=== PATIENT | male | born 1975 | race Caucasian/White ===

== ENCOUNTER 2021-08-05 12:36 | Emergency (ER) | payer BC, SELFPAY ==
--- NOTE | ~2021-08-05 | XR_ITS ---
EXAMINATION: XR WRIST, RIGHT CLINICAL INFORMATION: Question foreign body COMPARISON: None TECHNIQUE: PA, lateral, and oblique views of the right wrist. FINDINGS: No fracture or dislocation. The carpal rows are well aligned. Joint spaces are maintained. Mild degenerative change of the first carpometacarpal joint with small osteophytes. Soft tissues are prominent throughout. No radiopaque foreign body identified. XR/XR wrist RT min 3V IMPRESSION: No radiopaque foreign body.
[2021-08-05 12:46] VITALS: BP 143/97; PULSE 105; RESP 18; TEMP 36.1; O2SAT 95; BMI 50.8
[2021-08-05] MEDS: Diphth,Pertus(ACell),Tet Adult 0.5 ML SYRINGE IM (13:35)
[2021-08-05 13:47] LABS: MANUAL DIFF FLAG NO
[2021-08-05 13:52] LABS: Basophils Absolute Auto 0.1 X10*3/uL (0.0-0.2); Basophils Percent Auto 0.7 % (0-2); Eosinophils Absolute Auto 0.1 X10*3/uL (0.0-0.4); Eosinophils Percent Auto 0.9 % (0-4); Hematocrit 47.7 % (42.0-52.0); Hemoglobin 15.6 g/dl (14.0-18.0); Imm Gran Abs Auto 0.05 X10*3/uL (0.00-0.03); Imm Gran Pct Auto 0.5 % (0.0-0.4); Lymphocytes Percent Auto 19.7 % (20-40); Mean Corpuscular HGB Conc 32.7 g/dl (31.0-36.0); Mean Corpuscular Hemoglobin 31.5 pg (27.0-33.0); Mean Corpuscular Volume 96.4 fL (80.0-98.0); Mean Platelet Volume 10.4 fL (9.4-12.4); Monocytes Absolute Auto 0.8 X10*3/uL (0.1-1.2); Monocytes Percent Auto 8.3 % (2-11); Neutrophils Absolute Auto 7.1 x10*3/uL (2.0-8.3); Neutrophils Percent Auto 69.9 % (45-73); Platelet Count 264 X10*3/uL (160-400); Red Blood Count 4.95 X10*6/uL (4.60-5.80); White Blood Count 10.2 X10*3/uL (4.8-10.8)
[2021-08-05 14:08] LABS: Anion Gap 12 (12-20); Blood Urea Nitrogen 9 mg/dL (9-16); C Reactive Protein 1.14 mg/dL (< or = 0.50); Calcium 9.8 mg/dL (8.4-10.2); Carbon Dioxide 27 mmol/L (22-29); Chloride 102 mmol/L (96-108); Creatinine Clr Calc Pharmacy 149.4; Estimated Glomerular Filt Rate > 60; Glucose Random 103 mg/dL (60-115); Potassium 4.3 mmol/L (3.3-5.1); Sodium 137 mmol/L (135-145)
--- NOTE | 2021-08-05 14:28 | ED_ITS ---
HPI - Wound/Laceration General Chief Complaint: Wound/Laceration Stated Complaint: r wrist laceration hand numbness Time Seen by Provider: 08/05/21 13:29 Source: patient Mode of arrival: ambulatory History of Present Illness HPI narrative: 45-year-old male with no significant past medical history presenting to the ED complaining of laceration to right wrist s/p hand going through glass screen door last night around 16:45. Reports numbness and tingling to 1st 3 digits. Tetanus out of date. Denies injury to the area. Denies fever, chills Onset (ago): hour(s) Related Data Previous Rx's Medication Instructions Recorded amoxicillin 875 mg-potassium 1 tab PO BID 7 Days #14 tab 08/05/21 clavulanate 125 mg tablet hydrocodone 5 mg-acetaminophen 325 1 tab PO Q8H PRN 3 Days #9 tab 08/05/21 mg tablet Allergies Allergy/AdvReac Type Severity Reaction Status Date / Time No Known Allergies Allergy Verified 08/05/21 12:49 Review of Systems Review of Systems: Constitutional: No Fever, No Chills ENT/Mouth: No Ear Pain, No Nasal Congestion, No sore throat, No Rhinorrhea Cardiovascular: No Chest Pain, No SOB Respiratory: No Cough, No Sputum Gastrointestinal: No Nausea, No Vomiting, No Abdominal pain Musculoskeletal: + joint pain, No Myalgias, + Joint Swelling Skin: + Skin Lesions, No rash Neuro: No Weakness, No Numbness, No Paresthesias Yes all other systems are reviewed and are negative [facility] Past Medical History Attestation statement: The following information was validated with the patient. Medical History (Updated 08/05/21 @ 15:46 by Daphnie Vail MD) No known health problems Physical Exam Vital Signs: Vital Signs: Last Vital Signs Temp 97.0 F 08/05/21 12:46 Pulse 105 H 08/05/21 12:46 Resp 18 08/05/21 12:46 BP 143/97 H 08/05/21 12:46 Pulse Ox 95 08/05/21 12:46 BMI result Body Mass Index 50.8 Const: General: cooperative, healthy appearing and no acute distress Orientation/consciousness: patient oriented x3 Limitations: no limitations HENMT: Head: Yes normal to inspection Ears: hearing grossly normal bilaterally General nose exam: Normal external nose present Face and sinus: Yes normal facial exam Eyes: General: appearance normal, both eyes and all related structures EOM: EOMs intact bilaterally Neck: Neck: Yes normal visual inspection and Yes no meningeal signs Resp: Effort & Inspection: normal respiratory effort and no respiratory distress Cardio: Rate: regular rate Peripheral pulses: radial pulses present and u lnar radial pulses present Skin: Rashes: no rashes Neuro: General: patient oriented x3 and no meningeal signs Gait exam (Neuro): Normal gait present Extrem: Other: Please refer to images above. Irregular laceration noted to right wrist, no surrounding erythema or fluctuance/induration. No drainage. Tender to palpation. Thenar eminence and 1st 3 digits swollen and mildly tender +median nerve motor and sensory loss Able to make fist. Full 1st to 5th digit finger opposition limited. Course Course Course Narrative: No leukocytosis. CRP mildly elevated. Labs otherwise unremarkable XR wrist RT min 3V IMPRESSION: No radiopaque foreign body. > case discussed with orthopedics, Dr. Vail evaluated patient in the ED & dx patient with full median nerve laceration. Recommended IV Zosyn and discharge on Augmentin. Patient requires surgical repair however Dr. Barakat unable to perform due to timing, patient will need to get in with [facility] or [facility]. Patient also need to be re-evaluated in our ED over the weekend to ensure infection not worsening. I spoke to [facility] at [address] [place] [address] Drive & they made appointment for patient Wednesday 08/09 at 15:00 2nd floor [address]. Then patient will be scheduled for the OR later in the week. This was discussed with patient and Dr. Vail MDM - Wound/Laceration MDM Narrative Medical decision making narrative: 45-year-old male with no significant past medical history presenting to the ED complaining of laceration to right wrist s/p hand going through glass screen door last night around 16:45. Exam mildly tachycardic likely from pain prior and concern for early infection/tenosynovitis vs nerve injury/laceration. Low suspicion for tendon rupture Plan : labs, x-rays to r/o foreign body, orthopedic consult Medical Records Attestation: I reviewed the patient's medical records. Lab Data Attestation: I reviewed the patient's lab results. Result diagrams: 08/05/21 13:40 08/05/21 13:40 Labs: Lab Results 08/05/21 08/05/21 08/05/21 Range/Units 13:40 13:40 13:40 WBC 10.2 (4.8-10.8) X10*3/uL RBC 4.95 (4.60-5.80) X10*6/uL Hgb 15.6 (14.0-18.0) g/dl Hct 47.7 (42.0-52.0) % MCV 96.4 (80.0-98.0) fL MCH 31.5 (27.0-33.0) pg MCHC 32.7 (31.0-36.0) g/dl RDW 12.0 (11.0-16.0) % Plt Count 264 (160-400) X10*3/uL MPV 10.4 (9.4-12.4) fL Immature Gran % (Auto) 0.5 H (0.0-0.4) % Neut % (Auto) 69.9 (45-73) % Lymph % (Auto) 19.7 L (20-40) % Rusk % (Auto) 8.3 (2-11) % Eos % (Auto) 0.9 (0-4) % Baso % (Auto) 0.7 (0-2) % Lymph # (Auto) 2.0 (1.2-4.9) X10*3/uL Rusk # (Auto) 0.8 (0.1-1.2) X10*3/uL Eos # (Auto) 0.1 (0.0-0.4) X10*3/uL Baso # (Auto) 0.1 (0.0-0.2) X10*3/uL Abs Immat Gran (auto) 0.05 H (0.00-0.03) X10*3/uL Absolute Neuts (auto) 7.1 (2.0-8.3) x10*3/uL Absolute Nucleated RBC 0.000 (0.0-0.012) X10*3/uL Nucleated RBC % (auto) 0.0 (0.0-0.2) /100WBC ESR 12 (0-15) MM/HR Sodium 137 (135-145) mmol/L Potassium 4.3 (3.3-5.1) mmol/L Chloride 102 (96-108) mmol/L Carbon Dioxide 27 (22-29) mmol/L Anion Gap 12 (12-20) BUN 9 (9-16) mg/dL Creatinine 0.86 (0.5-1.4) mg/dL Estim Creat Clear Calc 149.4 Estimated GFR > 60 Random Glucose 103 (60-115) mg/dL Calcium 9.8 (8.4-10.2) mg/dL C-Reactive Protein 1.14 H (< or = 0.50) mg/dL Discharge Plan Discharge Clinical Impression: Laceration of right median nerve Patient Disposition: Home, Self-Care Instructions: Laceration (ED) Additional Instructions: Your x-ray did not show a foreign body. Keep a very close eye on the area. PERFORM DAILY WOUND CHECKS YOU NEED TO RETURN TO THE ED THIS WEEKEND FOR WOUND RECHECK. If your hand or wrist begin to look infected, more swollen, red, warm, or you have decreased range of motion please return to the ED immediately Augmentin is an antibiotic, please start taking as prescribed Your tetanus was updated today Take ibuprofen which will help with swelling and pain. In addition [place] as an opiate pain medication, take only when pain is severe for the next 3 days. Be aware [place] was Tylenol mixed in, do not exceed 4 g in 1 day YOU HAVE AN APPOINTMENT MONDAY AT 3PM AT [facility] [address] [place] [address] [address]IVE [address]LO[address] Prescriptions: New hydrocodone-acetaminophen 5-325 mg tablet 1 tab PO Q8H PRN (Reason: pain, severe) 3 Days Qty: 9 0RF amoxicillin-pot clavulanate 875-125 mg tablet 1 tab PO BID 7 Days Qty: 14 0RF Referrals: Belen Ortiz MD [Emergency Provider] - 2 days (for wound re-check) Interventions: ED Discharge Assessment Last Done: 08/05/21 16:27 Discharge Date/Time: 08/05/21 16:27
[2021-08-05 14:51] LABS: Erythrocyte Sedimentation Rate 12 MM/HR (0-15)
[2021-08-05] MEDS: Piperacillin Sodium/Tazobactam 3.375 GM in 0.9 % Sodium Chloride 50 ML IV (15:18)
--- NOTE | 2021-08-05 15:37 | P.CONOP_ITS ---
History of Present Illness HPI Consult date: 08/05/21 Chief complaint: r wrist laceration hand numbness Narrative: The patient is a 45-year-old thkle-heph-puravve[place] man who is seen in the em ergency department with his . Yesterday he had his hand go through a glass door, sustaining a laceration to the volar aspect of his right wrist. He has had numbness in some of the fingers of his right hand since his injury, but thought it was from the trauma of being struck And would resolve. Since yesterday he has developed considerable swelling and some increased pain in his right wrist and hand. [facility] Past Medical History Medical History (Updated 08/05/21 @ 15:46 by Daphnie Vail MD) No known health problems Social History Social History Advance Directives: No Advance Directives Information Provided: Yes Meds Allergies Allergy/AdvReac Type Severity Reaction Status Date / Time No Known Allergies Allergy Verified 08/05/21 12:49 Physical Exam Vital Signs: Vital Signs: Last Vital Signs Temp 97.0 F 08/05/21 12:46 Pulse 105 H 08/05/21 12:46 Resp 18 08/05/21 12:46 BP 143/97 H 08/05/21 12:46 Pulse Ox 95 08/05/21 12:46 BMI result Body Mass Index 50.8 Const: General: cooperative, healthy appearing and no acute distress Orientation/consciousness: oriented to person and oriented to place HENMT: Head: Yes normocephalic and Yes atraumatic Eyes: EOM: EOMs intact bilaterally Resp: Effort & Inspection: normal respiratory effort and able to speak in complete sentences Cardio: Jugular venous distension: no JVD Skin: General skin exam: turgor normal Rashes: no rashes Neuro: General: oriented to person and oriented to place Extrem: Other: Evaluation of Right Upper Extremity: Neuro: Ulnar, radial nerves motor and sensory intact. He has dense numbness in the median nerve distribution including the thumb index middle and radial half of the ring fingers. He also has no APB muscle belly firing. Good finger cross. Vascular: Cap refill brisk. ROM: Can bring fingers closed to a fist and back out to full extension. He has a small volar wrist laceration essentially directly over the palmaris longus tendon area. There are multiple Steri-Strips in place covering the wound. His wrist and hand are Swollen. He says it feels tight, but he can actively flex all of his fingers to a fist and then bring them back into full extension. No tenderness to palpation over the flexor tendon she is to the digits and the palm is soft and not particularly tender. Good active flexion and extension of the thumb. No active abduction and opposition of the thumb FDP and FDS tendons intact to all digits, and again good active flexion of the thumb. Good active wrist flexion and extension. FCR and FCU visibly and palpably intact. Radiographs: three views of his right wrist show no radiopaque foreign bodies in the area of the volar wrist laceration. No fractures or dislocations Psych: Appearance: grossly normal Affect: normal affect Attitude: cooperative Results Labs Result Diagrams: 08/05/21 13:40 08/05/21 13:40 Labs: Abnormal lab results 08/05/21 08/05/21 Range/Units 13:40 13:40 Immature Gran % (Auto) 0.5 H (0.0-0.4) % Lymph % (Auto) 19.7 L (20-40) % Abs Immat Gran (auto) 0.05 H (0.00-0.03) X10*3/uL C-Reactive Protein 1.14 H (< or = 0.50) mg/dL H & H 08/05/21 Range/Units 13:40 Hgb 15.6 (14.0-18.0) g/dl Hct 47.7 (42.0-52.0) % All other labs normal. Assessment and Plan (1) Laceration of right median nerve: Status: Acute (2) Cellulitis of right wrist: Status: Acute (3) Laceration of right wrist with complication: Status: Acute Plan assessment and plan: 1. Right volar wrist laceration with cellulitis date of injury 08/04/2021 after putting his hand through a glass door 2. Right median nerve laceration associated with above injury flexor tendons to all digits and the wrist flexor tendons all appear to be intact on exam. No evidence of deep hand space infection or flexor tenosynovitis. I educated the patient about this condition he would benefit from a course of IV antibiotics followed by some oral antibiotics and close follow-up for resolution of his cellulitis He should be seen by hand surgeon in the next few days, who can take care of the median nerve laceration next week. Unfortunately I will be unavailable during this time frame. Procedures Date of Service Date of Service: 08/05/21
[2021-08-05] MEDS: oxyCODONE HCl Immed Release 5 MG TABLET PO (15:44)
== END 2021-08-05 16:27 | disposition home or self-care (01) ==
PROVIDERS: Physician Assistant; Emergency Provider Emergency Medicine
DX: S64.11XA Injury of median nerve at wrist and hand level of right arm, initial encounter (principal); S61.511A Laceration without foreign body of right wrist, initial encounter; W25.XXXA Contact with sharp glass, initial encounter; Y93.9 Activity, unspecified; Y92.9 Unspecified place or not applicable; Y99.9 Unspecified external cause status
CPT/HCPCS: 36415; 73110; 80048; 85025; 85652; 86140; 90471; 90715; 96365; 99284; J2543

== ENCOUNTER 2021-08-08 12:02 | Emergency (ER) | payer BC, SELFPAY ==
[2021-08-08 12:08] VITALS: BP 151/94; PULSE 83; RESP 19; TEMP 36.3; O2SAT 97; BMI 50.3
--- NOTE | 2021-08-08 12:42 | ED_ITS ---
HPI - Wound/Laceration General Chief Complaint: Wound/Laceration Stated Complaint: wound/laceration check up Time Seen by Provider: 08/08/21 12:03 Source: patient Mode of arrival: ambulatory History of Present Illness HPI narrative: 45-year-old male with no significant past medical history presenting to the ED for wound check to right wrist s/p laceration on 08/05/21 after hand going through glass door. Patient was evaluated in the ED after incident, diagnosed with median nerve laceration, evaluated by Orthopedics, started on Augmentin which he reports compliance, has follow-up at [facility] orthopedics tomorrow for surgical consult. Reports ecchymosis and continue tingling. Also reports mild drainage. Denies fever, chills Onset (ago): day(s) Related Data Previous Rx's Medication Instructions Recorded amoxicillin 875 mg-potassium 1 tab PO BID 7 Days #14 tab 08/05/21 clavulanate 125 mg tablet hydrocodone 5 mg-acetaminophen 325 1 tab PO Q8H PRN 3 Days #9 tab 08/05/21 mg tablet Allergies Allergy/AdvReac Type Severity Reaction Status Date / Time No Known Allergies Allergy Verified 08/05/21 12:49 Review of Systems Review of Systems: Constitutional: No Fever, No Chills ENT/Mouth: No Ear Pain, No Nasal Congestion, No Rhinorrhea, No Swallowing Difficulty Cardiovascular: No Chest Pain, No SOB Respiratory: No Cough, No Sputum Gastrointestinal: No Nausea, No Vomiting, No Diarrhea, No Constipation, No Abdominal pain Genitourinary:, No Dysuria, No Urinary Frequency,No Flank Pain Musculoskeletal: No joint pain, No Myalgias, + Joint Swelling Skin: +laceration, No rash Neuro: No Weakness, No Numbness, + Paresthesias Yes all other systems are reviewed and are negative [facility] Past Medical History Attestation statement: The following information was validated with the patient. Medical History No known health problems Social History Social History Advance Directives: No Advance Directives Information Provided: No Physical Exam Vital Signs: Vital Signs: Last Vital Signs Temp 97.4 F 08/08/21 12:08 Pulse 83 08/08/21 12:08 Resp 19 08/08/21 12:08 BP 151/94 H 08/08/21 12:08 Pulse Ox 97 08/08/21 12:08 BMI result Body Mass Index 50.3 Const: General: cooperative, healthy appearing and no acute distress Orientation/consciousness: patient oriented x3 Limitations: no limitations HENMT: Head: Yes normal to inspection and Yes atraumatic Ears: hearing grossly normal bilaterally General nose exam: Normal external nose present Face and sinus: Yes normal facial exam Eyes: General: appearance normal, both eyes and all related structures EOM: EOMs intact bilaterally Neck: Neck: Yes normal visual inspection and Yes no meningeal signs Resp: Effort & Inspection: normal respiratory effort and no respiratory distress Cardio: Rate: regular rate Peripheral pulses: radial pulses present Skin: Other: Laceration noted to right wrist with surrounding healing ecchymosis and swelling, no erythema, no warmth, no fluctuance/induration, no streaking. Scant bloody drainage. Tender to palpation. Sensation intact to light touch, reportedly different to 1st digit (consistent with initial injury date). Cap refill wnl Rashes: no rashes Neuro: General: patient oriented x3 and no meningeal signs Gait exam (Neuro): Normal gait present Extrem: General: Yes normal to inspection MDM - Wound/Laceration MDM Narrative Medical decision making narrative: 45-year-old male with no significant past medical history presenting to the ED for wound check to right wrist s/p laceration on 08/05/21 after hand going through glass door. On exam vital signs stable, NAD, appropriate wound healing to laceration. Patient has appointment at [facility] hand surgery mild at 15:00. Stressed importance of continued compliance with antibiotics and follow up tomorrow, he verbalized understanding and feel safe for discharge home at this time Medical Records Attestation: I reviewed the patient's medical records. Lab Data Attestation: I reviewed the patient's lab results. Discharge Plan Discharge Clinical Impression: Visit for wound check Patient Disposition: Home, Self-Care Instructions: Laceration (DC) Additional Instructions: YOU HAVE AN APPOINTMENT TOMORROW AT 3PM AT [facility] [address] [place] [address] [address] Continue previously prescribed antibiotics. Perform daily wound check. Take ibuprofen to help with pain and swelling. Area begins to look infected, is red, there is drainage or you fever please return to the ED It is important that you follow-up with hand specialist tomorrow Prescriptions: No Action hydrocodone-acetaminophen 5-325 mg tablet 1 tab PO Q8H PRN (Reason: pain, severe) 3 Days Qty: 9 0RF amoxicillin-pot clavulanate 875-125 mg tablet 1 tab PO BID 7 Days Qty: 14 0RF
== END 2021-08-08 13:09 | disposition home or self-care (01) ==
PROVIDERS: Emergency Provider Emergency Medicine
DX: Z48.00 Encounter for change or removal of nonsurgical wound dressing (principal); Z79.899 Other long term (current) drug therapy
CPT/HCPCS: 99283